=== PATIENT | female | born 1955 ===

== ENCOUNTER → 2017-10-26 | Emergency (ER) | payer OTHER ==
[~2017-10-26] VITALS: Ht 167.6 cm; Wt 88.9 kg
[~2017-10-26] MED LIST: CARDIZEM LA240 MG; LIPITOR20 MG; SYNTHROID137 MCG
== END | disposition home or self-care (01) ==
LOC: ER 08:16
DX: R42 Dizziness and giddiness (principal); R51 Headache; R00.2 Palpitations; R06.02 Shortness of breath; F41.9 Anxiety disorder, unspecified

== ENCOUNTER 2019-08-04 10:04 | Outpatient (CLI) | payer OTHER | END 2019-08-04 10:06 | disposition home or self-care (01) | LOC: NUCLEAR 10:04 | DX: I10 Essential (primary) hypertension (principal); J44.9 Chronic obstructive pulmonary disease, unspecified ==